=== PATIENT | male | born 1990 | race Caucasian/White ===

== ENCOUNTER 2017-10-31 12:38 | Emergency (ER) | payer MEDICAID ==
[~2017-10-31] VITALS: Ht 160 cm; Wt 83.9 kg
[2017-10-31 12:38] VITALS: BP_SYST 139
--- NOTE | 2017-10-31 12:38 | NUR ---
Placed in room 01. Placed on bus driver/monitor, blood pressure machine and pulse oximeter. To gown for exam. Side rails up.
--- NOTE | 2017-10-31 12:38 | NUR ---
ER Dr. Mandel at bedside examining patient.
[2017-10-31] MEDS ORDERED: NACL 0.9% 1,000 ML IV ONE (12:45)
[2017-10-31] MEDS ORDERED: ETOMIDATE 20 MG/ 10 ML VIAL (AMIDATE) IVP ONE (13:15)
[2017-10-31] MEDS ORDERED: fentaNYL CITRATE/PF 100 MCG/2 ML AMP IVP ONE (13:15)
--- NOTE | 2017-10-31 13:20 | NUR ---
Patient presented in ER via BLS. cc of left knee dislocation.stated in the gym lifting heavy wt when pt unable to hold the heavy wt.drop to the floor on his knees. Dx of left discolated patella. pt alert, awake, oriented,no s/s of distress denies pain at the site. immobilizer in placed.informed about the poc.
--- NOTE | 2017-10-31 13:21 | NUR ---
Consent was been consented by patient.
--- NOTE | 2017-10-31 13:56 | NUR ---
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 reversal med avail. 1349 -vital sign 134/70, pulse 74, resp 13, saturation 100%. 1350- bedside time out done. 1351- 10mg of Etomidate ivp administered. 1356 -Total of 100mg of fentanyl ivp administered. Dr. Mandel tried to do closed reduction but unsuccessful. 1400 knee immobilizer placed.pt drowsy, able to answer question.vital sign 135/88 pulse 68, resp 14, saturation 100% 0n 02@l/nc. recovery protocol followed.
--- NOTE | 2017-10-31 14:00 | NUR ---
Knee Immobolizer applied to left ac. palpable pulse noted. Capillary refill <3 seconds. Patient has ability to move toes. Has sensation present to affected site. Skin color within normal limits.
[2017-10-31] MEDS ORDERED: MORPHINE 4 MG/ML INJ. SYRINGE IVP ONE (15:00)
--- NOTE | 2017-10-31 15:00 | NUR ---
patient talking family via phone.
--- NOTE | 2017-10-31 16:20 | NUR ---
Patient to be transferred to [facility]. Is being transferred due to higher level of care. Receiving facility has accepting physician and available space. ER physician has signed transfer form. Patient or responsible constitution party has agreed to transfer and signed form. Patient belongings inventoried and will be sent with girlfriend ( pao) Copy of nursing notes, lab reports, EKG, Physicians Orders and X-rays to be sent with patient. Report called to jaye page at receiving facility. Receiving physician is Jeremy. [facility] has been called for transfer. ETA is 1630. Addendum: 10/31/17 at 1642 by [facility] phone # of [facility] [phone], pt is going to ortho department room 3231.
[2017-10-31 16:35] VITALS: BP_SYST 135
--- NOTE | 2017-10-31 19:01 | NUR ---
TRIED TO CONTACT PATIENT GIRLFRIEND RELATED TO BELONGINGS LEFT AT THE HOSPITAL , MAREK .BUT UNSUCESSFUL. CALLED AND TALK TO MALISSA INFANTE ) INFORMED STATED" MY GIRLFRIEND WILL MARKET RESEARCH ANALYST MY BELONGINGS AFTER WORK POSSIBLE AROUND 7:30 PM." WILL ENDORSED TO INCOMING NURSE.
== END 2017-10-31 16:35 | disposition short-term general hospital (02) ==
LOC: SED 12:38
DX: S83.005A Unspecified dislocation of left patella, initial encounter (principal); X50.0XXA Overexertion from strenuous movement or load, initial encounter; Y93.89 Activity, other specified; Y92.89 Other specified places as the place of occurrence of the external cause; Y99.8 Other external cause status
CPT/HCPCS: 27550; 73564; 96374; 99285; J2270; J3010; J3490; J7030; 96375

== ENCOUNTER 2022-10-21 15:42 | Emergency (ER) | payer MEDICAID | END 2022-10-21 16:10 | disposition left against medical advice (07) | LOC: SED 15:42 | DX: M25.571 Pain in right ankle and joints of right foot (principal); Z53.21 Procedure and treatment not carried out due to patient leaving prior to being seen by health care provider ==

== ENCOUNTER 2022-10-21 19:28 | Emergency (ER) | payer MEDICAID ==
[~2022-10-21] VITALS: Ht 162.6 cm; Wt 89.8 kg
[2022-10-21 19:31] VITALS: BP_SYST 147; PULSE 88; RESP 16; TEMP 98.7; O2SAT 97
--- NOTE | 2022-10-21 19:49 | NUR ---
ER Dr. WELCH at CHAIR side examining patient.
[2022-10-21 20:10] VITALS: BP_SYST 147; PULSE 88; RESP 16; TEMP 98.7; O2SAT 97
--- NOTE | 2022-10-21 20:10 | NUR ---
Patient given written and verbal discharge instructions and verbalizes understanding. ER MD discussed with patient the results and treatment provided. Patient in stable condition. ID arm band removed. Patient educated on ANKLE pain management and to follow up with PMD. Pain Scale 0. Opportunity for questions provided and answered. Medication side effect fact sheet provided.
--- NOTE | 2022-10-21 20:10 | NUR ---
Patient given written and verbal discharge instructions and verbalizes understanding. ER DR WELCH discussed with patient the results and treatment provided. Patient in stable condition. ID arm band removed. NO Rx given. Patient educated on pain management and to follow up with PMD. Pain Scale 0/10. Opportunity for questions provided and answered. Medication side effect fact sheet provided.
== END 2022-10-21 20:10 | disposition home or self-care (01) ==
LOC: SED 19:28
DX: Z00.00 Encounter for general adult medical examination without abnormal findings (principal); Z79.899 Other long term (current) drug therapy
CPT/HCPCS: 99281